=== PATIENT | male | born 1990 | race Two or more races ===

== ENCOUNTER 2021-06-06 15:29 | Emergency (ER) | payer MEDICAID, SELFPAY ==
--- NOTE | ~2021-06-06 | XR_ITS ---
EXAMINATION: XR TOES, LEFT CLINICAL INFORMATION: Second toe pain and swelling status post injury COMPARISON: None TECHNIQUE: 3 views of the left toes were obtained. FINDINGS: Negative for fracture or dislocation. It should be noted that the first digit demonstrates a probable sequela of previous injury at the interphalangeal joint medially. It should also be noted that the ventral aspect of the region of the PIP joint the second digit is not adequately seen. Point palpation recommended here XR/XR toe LT min 2V IMPRESSION: Some limitation as described. No fracture or dislocation seen second digit.
[2021-06-06 15:58] VITALS: BP 122/68; PULSE 76; RESP 18; TEMP 36.4; O2SAT 97; BMI 26.4
--- NOTE | 2021-06-06 16:17 | ED.LOWEXIN ---
HPI - Extremity Injury (Lower) General Chief Complaint: Extremity Injury, Lower Stated Complaint: Toe injury Time Seen by Provider: 06/06/21 15:48 Source: patient Mode of arrival: ambulatory Limitations: no limitations History of Present Illness HPI Narrative: 30-year-old male presenting to the ED with complaints of left foot 2nd toe injury on Thursday while he was caring his son he impacted his foot on the gravel and since then he has been having pain/swelling. He denies any other injuries complaints or concerns at this time. MD complaint: foot injury (Left 2nd toe) Onset (ago): day(s) (2) Injury: Left: toes (2nd toe) Type of Injury: blunt Place: home Severity: moderate Relieving factors: nothing Exacerbating factors: weight bearing, movement and palpation Context: direct blow Associated symptoms: swelling and able to partially bear weight Other symptoms: none Treatments prior to arrival: NSAIDS Related Data Previous Rx's Medication Instructions Recorded acetaminophen 500 mg tablet 1,000 mg PO QID PRN #14 tab 06/06/21 (Tylenol Extra Strength) ibuprofen 800 mg tablet 800 mg PO Q8H PRN #14 tab 06/06/21 oxycodone 5 mg tablet 5 mg PO Q6H PRN #5 tab 06/06/21 Allergies Allergy/AdvReac Type Severity Reaction Status Date / Time No Known Allergies Allergy Verified 06/06/21 15:54 Review of Systems Review of Systems: Constitutional : No Weight loss, No Fever, No Chills, No Night Sweats, No Fatigue, No Malaise ENT/Mouth : No Hearing loss, No Ear Pain, No Nasal Congestion, No Sinus Pain, No Hoarseness, No sore throat, No Rhinorrhea, No Swallowing Difficulty Eyes: No Eye Pain, No Swelling, No Redness, No Foreign Body, No Discharge, No Vision Changes Cardiovascular : No Chest Pain, No SOB, No Dyspnea on Exertion, No Orthopnea, No Edema, No Palpitations Respiratory : No Cough, No Sputum, No Wheezing, No Smoke Exposure, No Dyspnea Gastrointestinal : No Nausea, No Vomiting, No Diarrhea, No Constipation, No abdominal Pain, No Hematochezia, No Melena Genitourinary : no irregular bleeding, No Dysuria, No Urinary Frequency, No Hematuria, No Urinary Incontinence, No Urgency, No Flank Pain, No Urinary Flow Changes, No Hesitancy Musculoskeletal : + left 2nd toe joint pain/swelling/bruising, No Myalgias Skin : No Skin Lesions, No rash Neuro : No Weakness, No Numbness, No Paresthesias, No Loss of Consciousness, No Dizziness, No Headache Psych : No Anxiety/Panic, No Depression, No SI/HI/AH/VH, No Social Issues, Heme/Lymph: No Bruising, No Bleeding,No Lymphadenopathy Endocrine : No Polyuria, No Polydipsia, No Temperature Intolerance Yes all other systems are reviewed and are negative [facility] Past Medical History Attestation statement: The following information was validated with the patient. Medical History No known health problems Social History Social History Advance Directives: No Advance Directives Information Provided: No Physical Exam Vital Signs: Vital Signs: Last Vital Signs Temp 97.5 F 06/06/21 15:58 Pulse 76 06/06/21 15:58 Resp 18 06/06/21 15:58 BP 122/68 06/06/21 15:58 Pulse Ox 97 06/06/21 15:58 BMI result Body Mass Index 26.4 vital signs have been reviewed as normal and appeared to be correct. Blood pressure normal Heart rate normal. Respiration rate normal. Temperature normal. Oxygen saturation normal. Appearance: Alert. Oriented X3. No acute distress. Head: Normal external exam. Normocephalic. Atraumatic. Eyes: PERRLA. EOMI. Conjunctiva and sclera normal. Eyelids normal. ENT: Pharynx normal. Uvula midline. Moist mucous membranes. Neck: Normal inspection. Neck supple. FROM. CVS: Normal heart rate and rhythm. Respiratory: No respiratory distress. Painless inspiration. Skin: Skin warm and dry. Normal skin color. Normal skin turgor. No rashes/lesions/lacerations noted. Extremities: Patient with moderate tenderness palpation to the left 2nd toe with soft tissue swelling and ecchymosis noted with limited range of motion due to pain although no obvious ligamentous or tendon injury noted. No signs of infection noted. No signs of abscess is noted. No streaking/induration/fluctuance. Otherwise all other extremities exhibit normal range of motion nontender. No lower extremity edema or calf tenderness noted. Neuro: Oriented X 3. No motor deficit. No sensory deficit. Reflexes normal. Normal steady gait. No focal neuro deficits noted. Vascular: + radial pulses/+ 2 distal pedal pulses/+2 dorsalis pedis b/l. Normal cap refill. No cyanosis noted to upper extremity nails and lower extremity toes nails. Course Course Course Narrative: 30-year-old male presenting to the ED with complaints of left foot 2nd toe injury on Thursday while he was caring his son he impacted his foot on the gravel and since then he has been having pain/swelling. He denies any other injuries complaints or concerns at this time. Will obtain an x-ray of left foot then re-evaluate. Reevaluation(s) Reevaluation #1: - x-ray negative for any acute processes. Will DC home with symptomatic treatment instructions return if any new or worsening symptoms to follow up with primary care provider. Patient understands agrees with this plan. Time: 18:13 MDM - Extremity Injury (Lower) Medical Records Attestation: I reviewed the patient's medical records. Imaging Data left foot/toe xray: Attestation: I personally reviewed and interpreted this imaging study as follows: Radiologist's impression: FINDINGS: Negative for fracture or dislocation. It should be noted that the first digit demonstrates a probable sequela of previous injury at the interphalangeal joint medially. It should also be noted that the ventral aspect of the region of the PIP joint the second digit is not adequately seen. Point palpation recommended here XR/XR toe LT min 2V IMPRESSION: Some limitation as described. No fracture or dislocation seen second digit. Discharge Plan Discharge Clinical Impression: Sprain of toe, second, left, Bruised toe Patient Disposition: Home, Self-Care Instructions: Foot Sprain (ED), Ecchymosis (ED) Prescriptions: New ibuprofen 800 mg tablet 800 mg PO Q8H PRN (Reason: pain) Qty: 14 0RF acetaminophen [Tylenol Extra Strength] 500 mg tablet 1,000 mg PO QID PRN (Reason: fever or pain) Qty: 14 0RF oxycodone 5 mg tablet 5 mg PO Q6H PRN (Reason: pain) Qty: 5 0RF Referrals: Ji Macedo MD [Physician] - 2 weeks (You can follow-up in 2 weeks if symptoms persist call to make a follow-up appointment) Physician,None [Primary Care Provider] - (your pcp) Stand Alone Forms: Work/School Release Print Language: Marshallese
== END 2021-06-06 18:26 | disposition home or self-care (01) ==
PROVIDERS: Emergency Provider Student in an Organized Health Care Education/Training Program
DX: S93.502A Unspecified sprain of left great toe, initial encounter (principal); S93.505A Unspecified sprain of left lesser toe(s), initial encounter; Y29.XXXA Contact with blunt object, undetermined intent, initial encounter; Y93.9 Activity, unspecified; Y92.007 Garden or yard of unspecified non-institutional (private) residence as the place of occurrence of the external cause; Y99.9 Unspecified external cause status; Z79.899 Other long term (current) drug therapy
CPT/HCPCS: 73660; 99283